=== PATIENT | female | born 1950 | race Caucasian/White ===

== ENCOUNTER 2023-10-23 09:00 | Outpatient (CLI) | payer MEDICARE ==
--- NOTE | 2023-10-23 15:07 | XRAY Report ---
PROCEDURE: Foot 3+V LT INDICATIONS: CONTUSION OF LEFT FOOT TECHNIQUE: 3 views of the foot were acquired. COMPARISON: None. FINDINGS: Bones: No fractures or dislocations. Mild first MTP and diffuse IP joint space narrowing and juxta-a rticular osteophytosis. No suspicious bony lesions. Soft tissues: No tibiotalar joint effusion. Achilles tendon appears normal. No radiopaque foreign body. IMPRESSION: 1.No acute bony abnormality. If clinical symptoms persist, consider repeat radiograph in 7-10 days ve rsus cross-sectional imaging. 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 Reviewed by: Linda Parham MD on 10/23/2023 3:05 PM PDT Approved by: Linda Parham MD on 10/23/2023 3:05 PM PDT Station ID: [id number]
== END 2023-10-23 09:15 | disposition home or self-care (01) ==
LOC: DI.N 09:00
PROVIDERS: ATTEND Family Medicine
DX: S90.32XA Contusion of left foot, initial encounter (principal); M19.072 Primary osteoarthritis, left ankle and foot